=== PATIENT | male | born 1980 | race Caucasian/White ===

== ENCOUNTER 2019-10-19 09:58 | Outpatient (CLI) | payer OTHER ==
[2019-10-19] MEDS ORDERED: OMNIPAQUE 350 MG/ML, 100ML BOTTLE ONE (14:47)
== END 2019-10-19 23:59 | disposition home or self-care (01) ==
LOC: CVU 09:58 → CFH 23:59
PROVIDERS: ATTEND Internal Medicine Cardiovascular Disease
DX: I36.1 Nonrheumatic tricuspid (valve) insufficiency (principal); I51.7 Cardiomegaly; Z87.891 Personal history of nicotine dependence
CPT/HCPCS: 71275; 93306; Q9967

== ENCOUNTER 2020-01-27 08:43 | Day surgery (SDC) | payer OTHER ==
[~2020-01-27] VITALS: Ht 162.6 cm; Wt 72.7 kg
[2020-01-27] MEDS ORDERED: SPIR25TA5 PO (09:13)
[2020-01-27 09:18] VITALS: BP 121/74
[2020-01-27] MEDS ORDERED: DIPHENHYDRAMINE 50 MG/ML, 1ML IVPush ONE (09:30)
[2020-01-27 09:51] LABS: INTERNATIONAL NORMALIZED RATIO 1.05 (0.93-1.1); PROTHROMBIN TIME 11.1 Seconds (9.6-11.5)
[2020-01-27] MEDS ORDERED: DIPHENHYDRAMINE 50 MG/ML, 1ML ONE (10:08)
[2020-01-27] MEDS ORDERED: MIDAZOLAM 1 MG/ML, 5ML ONE (11:00)
[2020-01-27] MEDS ORDERED: FENTANYL PF 100 MCG/2ML ONE (11:00)
[2020-01-27] MEDS ORDERED: LIDOCAINE 1%, 20ML ONE (11:18)
== END 2020-01-27 15:20 | disposition home or self-care (01) ==
LOC: CACL 08:43
PROVIDERS: ATTEND Internal Medicine Cardiovascular Disease
DX: R93.1 Abnormal findings on diagnostic imaging of heart and coronary circulation (principal); I27.9 Pulmonary heart disease, unspecified; R06.02 Shortness of breath; Z79.01 Long term (current) use of anticoagulants; Z79.899 Other long term (current) drug therapy
CPT/HCPCS: 36415; 82330; 82803; 82947; 83880; 84132; 84295; 85014; 85610; 93451; 99156; 99157; C1769; C1894; J1200; J2250; J3010